=== PATIENT | female | born 1950 | race African-American/Black ===

== ENCOUNTER 2016-09-05 10:57 | Emergency (ER) | payer MEDICARE, OTHER ==
--- NOTE | ~2016-09-05 | US85 ---
[facility] A Service of [facility] RADIOLOGY TEXT RESULTS PATIENT: LADARIUS BUTTERFIELD LOCATION: CFTX : 50 UNIT #: [id number] AGE: [address]: NERI RODRIGUEZ SEX: F ORDER DR: [id number] [facility] [address] [place], [place] [address] [id number] E MR#: [id number] #: [id number] NAME: LADARIUS BUTTERFIELD : 1950 SEX: F STUDY DATE/TIME: 09/05/2016 12:25 UNIT: CFTX ROOM: STUDY DESCRIPTION: [facility] or [facility] Attending Physician: Neri Rodriguez A.P.R.N. Ordering Physician: Blaze Rodriguez Primary Care Physician: Yogesh Fleming MEDICAL IMAGING REPORT This report is preliminary unless electronic signature is present EXAM Right lower extremity venous ultrasound. HISTORY Right lower extremity pain for 1 month. No injury. TECHNIQUE Venous ultrasound examination of the right lower extremity was performed using grayscale, spectral Doppler and color flow Doppler imaging. FINDINGS The examination is negative. There is no evidence of right lower extremity deep venous thrombus from the groin to the lower calf. Visualized greater saphenous vein is also patent. IMPRESSION Negative examination. No evidence of right lower extremity deep venous thrombosis. Dictated by... Randy Norris M.D. THIS IS AN ELECTRONICALLY VERIFIED REPORT Randy Norris M.D. at 09/05/2016 10:47 PM DFL/meggan TD: 09/05/2016 14:25 JOB #: [id number] MEDICAL IMAGING REPORT Page 1 of 1 COPY
[~2016-09-05 10:57] MED LIST: ASPIRIN EC81 M1 PO; CLARITIN10 M3 PO; FLEXERIL10 MG PO; GLUCOPHAGE850 MG PO; GLUCOTROL10 MG PO; IMDUR-ER30 MG PO; KLOR-CON PO; LASIX PO; LOPID600 MG PO; NORVASC PO; PLAVIX PO; PRAVASTATIN SOD20 MG PO; SALINE MIST45 M1 NS; SEROQUEL25 MG PO; STELAZINE PO
== END 2016-09-05 14:25 | disposition home or self-care (01) ==
LOC: CED 10:57 → CFTX 10:57
DX: M79.662 Pain in left lower leg (principal)
CPT/HCPCS: 82947; 93971; 99284